=== PATIENT | male | born 1970 | race Caucasian/White ===

== ENCOUNTER 2016-09-16 20:05 | Emergency (ER) | payer MEDICAID ==
[2016-09-16 20:20] VITALS: BP 130/84
--- NOTE | 2016-09-16 21:23 | RAD ---
INDICATION: Left foot injury. TECHNIQUE: 3 views of the left foot were obtained. FINDINGS: The bones are in normal alignment. No fracture is seen. Joint spaces appear maintained. IMPRESSION: NO EVIDENCE FOR FRACTURE.
--- NOTE | 2016-09-16 22:31 | UC ---
Lower Extremity/Ankle HPI - HPI Summary HPI Summary: Patient presents to after "twisting" his foot with pain on the dorsum of the foot and in the lateral side of his ankle this afternoon. He has been ambulating with pain. No swelling noted, but he states the foot became red. Denies warmth or temperature changes. He has not tried anything for relief. Denies diabetes, history of skin infections, CAD or PAD/PVD. Pain is not worse with elevation and not better with dependency. Patient is a heavy smoker and denies close follow up care with PCP. Good pulses +2 bilaterally. No pain on palpation of the foot or lateral ankle. No pain in ankle. Notes to some numbness and tingling in the 4th and 5th toes. - History of Current Complaint Chief Complaint: UCLowerExtremity Stated Complaint: FOOT INJURY Time Seen by Provider: 09/16/16 20:56 Hx Obtained From: Patient Onset/Duration: Sudden Onset Severity Initially: Moderate Severity Currently: Moderate Pain Intensity: 3 Pain Scale Used: 0-10 Numeric Aggravating Factor(s): Standing, Ambulation Alleviating Factor(s): Rest Able to Bear Weight: Yes - Risk Factors Gout Risk Factors: Age Over 40, Male DVT Risk Factors: Negative Septic Arthritis Risk Factor: Negative - Allergies/Home Medications Allergies/Adverse Reactions: Allergies Allergy/AdvReac Type Severity Reaction Status Date / Time Penicillins [PCN] Allergy Severe anaphylaxis Verified 09/16/16 20:19 Aspirin AdvReac Intermediate GI Verified 09/16/16 20:19 upset/vomiting Levetiracetam AdvReac Intermediate See Comment Verified 09/16/16 20:19 Phenytoin [From Dilantin] AdvReac Intermediate Diarrhea Verified 09/16/16 20:19 bees Allergy Severe anaphylaxis Uncoded 01/04/15 12:05 PMH/Surg Hx/FS Hx/Imm Hx Previously Healthy: Yes Cardiovascular History: Other - unknown Other Cardiovascular History: unknown Other History Of: Negative For: Anticoagulant Therapy - Surgical History Surgical History: None - Family History Known Family History: Positive: Diabetes - Social History Occupation: Employed Full-time Lives: With Family Alcohol Use: Rare Substance Use Type: None Smoking Status (MU): Current Every Day Smoker Type: Cigarettes Amount Used/How Often: 1 ppd Length of Time of Smoking/Using Tobacco: 20 years Have You Smoked in the Last Year: Yes - Immunization History Vaccination Up to Date: Yes Review of Systems Constitutional: Negative Skin: Other - erythema over foot Eyes: Eye Redness Respiratory: Negative Cardiovascular: Negative Motor: Decreased ROM - d/t pain Neurovascular: Decreased Sensation - over 4th and 5th toes Musculoskeletal: Arthralgia - ankle Neurological: Negative Psychological: Negative All Other Systems Reviewed And Are Negative: Yes Physical Exam Triage Information Reviewed: Yes Appearance: Well-Appearing, No Pain Distress, Well-Nourished Vital Signs: Initial Vital Signs Temp 98.8 F 09/16/16 20:18 Pulse 92 09/16/16 20:18 Resp 16 09/16/16 20:18 BP 130/84 09/16/16 20:18 Pulse Ox 99 09/16/16 20:18 Vital Signs Reviewed: Yes Eye Exam: Normal Eyes: Positive: Conjunctiva Clear Neck exam: Normal Neck: Positive: Supple, Nontender, No Lymphadenopathy Respiratory Exam: Normal Respiratory: Positive: Chest non-tender, Lungs clear Cardiovascular Exam: Normal Cardiovascular: Positive: RRR Musculoskeletal Exam: Normal Musculoskeletal: Positive: Strength Intact Neurological Exam: Normal Neurological: Positive: Alert Psychological: Positive: Normal Response To Family Skin: Positive: Other - rubor below the left ankle and diffusely across foot Lower Extremity Course/Dx - Course Course Of Treatment: Patient presents after twisting his ankle this afternoon with moderate pain on ambulation and rubor below the left ankle and diffusely across foot. Denies PAD/PVD, gout or diabetes. Pulses +2 bilaterally. No pain on palpation over dorsum of foot or over the ATFL. Patient is able to flex and extend, but with moderate amount of pain. He is a smoker. Encouraged cessation of smoking and educated patient on decreased vascularity d/t smoking. Encouraged to follow up with Dr. Saeed and return to if redness, numbness or other worsening symptoms develop. Anton wrapped for comfort. Patient denies wanting crutches as he is able to ambulate. Ibuprofen for discomfort. - Differential Dx/Diagnosis Differential Diagnosis/HQI/PQRI: Contusion, Sprain, Strain, Tendonitis Provider Diagnoses: Foot Sprain Discharge - Discharge Plan Condition: Stable Disposition: HOME Patient Education Materials: Foot Sprain (ED) Referrals: Mauricio Saeed MD [Medical Doctor] - David Dumont MD [Primary Care Provider] - Additional Instructions: Rest. Ice. For at least the first 24 to 72 hours or until the swelling goes down, apply an ice pack for 10 to 20 minutes every hour or two during the day. Always keep a thin cloth between the ice and your skin, and press the ice pack firmly against all the curves of the affected area. Compression. An elastic compression wrap, such as an ANTON bandage, will help reduce swelling. You wear it for the first 24 to 36 hours. Compression wraps do not offer protection. So you also need a brace to protect your ankle if you try to put weight on it. Elevation. Raise your ankle above the level of your heart for 2 to 3 hours a day if possible. This helps to reduce swelling and bruising. Ibuprofen 600mg three times daily for at least 5 days Continue with anton wrap x 2-3 days
== END 2016-09-16 21:47 | disposition home or self-care (01) ==
LOC: UCEAST 20:05
DX: S93.602A Unspecified sprain of left foot, initial encounter (principal); X50.1XXA Overexertion from prolonged static or awkward postures, initial encounter; Y93.9 Activity, unspecified; Y92.9 Unspecified place or not applicable; Y99.9 Unspecified external cause status; Z72.0 Tobacco use
CPT/HCPCS: 99211; G0463

== ENCOUNTER 2017-01-10 23:13 | Emergency (ER) | payer MEDICAID ==
[2017-01-10] MEDS ORDERED: NS 0.9% 1000 ML* 1,000 ML IV ONE (23:23)
[2017-01-10 23:28] VITALS: BP 128/88
[2017-01-10 23:44] LABS: Hematocrit 46 % (42-52); Hemoglobin 16.2 g/dl (14.0-18.0); Mean Corpuscular HGB Conc 35 g/dl (31-36); Mean Corpuscular Hemoglobin 32 pg (27-31); Mean Corpuscular Volume 90 fL (80-94); Mean Platelet Volume 8 um3 (7.4-10.4); Red Blood Count 5.09 10^6/ul (4.0-5.4); Red Cell Distribution Width 14 % (10.5-15); White Blood Count 10.6 10^3/ul (3.5-10.8)
[2017-01-10 23:55] LABS: Urine Bacteria Absent (Absent); Urine Bilirubin Negative (Negative); Urine Glucose Negative (Negative); Urine Nitrite Negative (Negative)
[2017-01-11 00:03] LABS: ALT 21 U/L (7-52); Alkaline Phosphatase 75 U/L (34-104); BUN/Creatinine Ratio 16.8 (8-20); Blood Urea Nitrogen 18 mg/dL (6-24); CO2 Carbon Dioxide 22 mmol/L (22-32); Calcium 9.3 mg/dL (8.6-10.3); Chloride 103 mmol/L (101-111); Creatine Kinase 99 U/L (10-223); EGFR African American 96.6 (>60); EGFR Non-African American 75.1 (>60); Globulin 2.9 g/dL (2-4); Glucose 138 mg/dL (70-100); Lipase 30 U/L (11.0-82.0); Sodium 136 mmol/L (133-145); Total Protein 6.9 g/dL (6.4-8.9)
[2017-01-11 00:06] LABS: Benzodiazepine Urine Screen None Detected (None Detect)
[2017-01-11 00:08] LABS: Acetaminophen < 15 mcg/mL; Alcohol < 10 mg/dL (<10); Valproic Acid < 13.0 mcg/mL (50-100)
[2017-01-11 00:20] LABS: Anion Gap 11 mmol/L (2-11)
[2017-01-11 00:32] LABS: TSH (Thyroid Stimulating Horm) 4.99 mcIU/mL (0.34-5.60)
== END 2017-01-11 00:40 | disposition home or self-care (01) ==
LOC: ED 23:13
DX: R56.9 Unspecified convulsions (principal); Z53.21 Procedure and treatment not carried out due to patient leaving prior to being seen by health care provider
CPT/HCPCS: 36415; 80053; 80164; 80307; 80320; 80329; 81003; 81015; 82550; 82553; 83605; 83690; 83735; 84443; 85025; 85610; 85730; 86140; G0480

== ENCOUNTER 2017-01-12 15:51 | Emergency (ER) | payer MEDICAID ==
[2017-01-12 17:25] LABS: Hematocrit 46 % (42-52); Hemoglobin 15.5 g/dl (14.0-18.0); Mean Corpuscular HGB Conc 34 g/dl (31-36); Mean Corpuscular Hemoglobin 31 pg (27-31); Mean Corpuscular Volume 90 fL (80-94); Mean Platelet Volume 8 um3 (7.4-10.4); Red Blood Count 5.07 10^6/ul (4.0-5.4); Red Cell Distribution Width 14 % (10.5-15); White Blood Count 13.5 10^3/ul (3.5-10.8)
[2017-01-12 17:41] LABS: ALT 22 U/L (7-52); Albumin 4.2 g/dL (3.2-5.2); Alkaline Phosphatase 61 U/L (34-104); BUN/Creatinine Ratio 14.3 (8-20); Blood Urea Nitrogen 14 mg/dL (6-24); CO2 Carbon Dioxide 27 mmol/L (22-32); Calcium 9.3 mg/dL (8.6-10.3); Chloride 105 mmol/L (101-111); EGFR African American 106.9 (>60); EGFR Non-African American 83.1 (>60); Glucose 94 mg/dL (70-100); Sodium 137 mmol/L (133-145); Total Protein 7.2 g/dL (6.4-8.9)
[2017-01-12 17:52] LABS: Alcohol < 10 mg/dL (<10)
[2017-01-12 17:55] LABS: Anion Gap 5 mmol/L (2-11)
[2017-01-12] MEDS ORDERED: Acetaminophen TAB* 325 MG PO ONE (17:56)
[2017-01-12] MEDS ORDERED: Ibuprofen TAB* 400 MG PO ONE (17:56)
[2017-01-12 18:01] LABS: Urine Bilirubin Negative (Negative); Urine Glucose Negative (Negative); Urine Nitrite Negative (Negative)
--- NOTE | 2017-01-12 19:04 | ED ---
Michael Biswas SooYoung, scribed for Luis Carlos Kunz MD on 01/12/17 at 1653 . Neurological HPI - HPI Summary HPI Summary: A 46 y/o M presents to ED s/p sz onset [employer] lasting approx 5 minutes. Associated sx: fever, MOORE, sinus congestion, sore throat, tongue bite. Denies: urinary incontinence. He states he also had a sz two nights ago. Prior to that, it had "been a long time." Medication non-compliant with sz meds. - History of Current Complaint Chief Complaint: EDSeizure Stated Complaint: SEIZURES Hx Obtained From: Patient Onset/Duration: Sudden Onset, Resolved Timing: Intermittent Episodes Lasting: - approx 5 mins Seizure Severity: Moderate Number of Seizures: 1 Pain Intensity: 7 Pain Scale Used: 0-10 Numeric Associated Signs and Symptoms: Positive: Headache, Seizure, Sinus Pressure - sinus congestion, Fever - Allergy/Home Medications Allergies/Adverse Reactions: Allergies Allergy/AdvReac Type Severity Reaction Status Date / Time Penicillins [PCN] Allergy Severe anaphylaxis Verified 09/16/16 20:19 Aspirin AdvReac Intermediate GI Verified 09/16/16 20:19 upset/vomiting Levetiracetam AdvReac Intermediate See Comment Verified 09/16/16 20:19 Phenytoin [From Dilantin] AdvReac Intermediate Diarrhea Verified 09/16/16 20:19 bees Allergy Severe anaphylaxis Uncoded 01/04/15 12:05 PMH/Surg Hx/FS Hx/Imm Hx Previously Healthy: No Endocrine/Hematology History: Denies: Hx Anticoagulant Therapy, Hx Diabetes, Hx Thyroid Disease, Other Endocrine/Hematological Disorders Cardiovascular History: Denies: Hx Hypertension, Other Cardiovascular Problems/Disorders Respiratory History: Denies: Hx Asthma, Hx Chronic Obstructive Pulmonary Disease (COPD), Other Respiratory Problems/Disorders GI History: Denies: Hx Ulcer, Other GI Disorders History: Denies: Other Problems/Disorders Musculoskeletal History: Denies: Hx Rheumatoid Arthritis, Hx Osteoporosis, Other Musculoskeletal History Sensory History: Denies: Other Sensory Impairments Opthamlomology History: Denies: Other Sensory Impairments Neurological History: Reports: Hx Headaches, Hx Migraine, Hx Seizures - chronic ; 15 years, stable now; intermittent and rare Denies: Other Neuro Impairments/Disorders Psychiatric History: Denies: Other Psychiatric Issues/Disorders Infectious Disease History: No Infectious Disease History: Denies: Hx Clostridium Difficile, Hx Hepatitis, Hx Human Immunodeficiency Virus (HIV), Hx of Known/Suspected MRSA, Hx Shingles, Hx Tuberculosis, Hx Known/ Suspected VRE, Hx Known/Suspected VRSA, History Other Infectious Disease, Traveled Outside the [place] in Last 30 Days - Family History Known Family History: Positive: Diabetes - Social History Occupation: Unemployed Lives: With Family Alcohol Use: Rare Substance Use Type: Reports: None Smoking Status (MU): Light Every Day Tobacco Smoker Type: Cigarettes Amount Used/How Often: 1 ppd Length of Time of Smoking/Using Tobacco: 20 years Have You Smoked in the Last Year: Yes Review of Systems Positive: Fever Positive: Sore Throat, Other - pos: tongue bite, sinus congestion Negative: incontinence Neurological: Other - pos: sz Positive: Headache All Other Systems Reviewed And Are Negative: Yes Physical Exam Triage Information Reviewed: Yes Vital Signs On Initial Exam: Initial Vitals Temp Pulse Resp BP Pulse Ox 98.9 F 109 14 119/76 94 01/12/17 16:01 01/12/17 16:01 01/12/17 16:01 01/12/17 16:01 01/12/17 16:01 Vital Signs Reviewed: Yes Appearance: Positive: Well-Appearing, No Pain Distress Skin: Positive: Warm, Skin Color Reflects Adequate Perfusion, Dry Head/Face: Positive: Normal Head/Face Inspection Eyes: Positive: Normal ENT: Positive: Normal ENT inspection, Nasal congestion Dental: Positive: Other - poor dentition; tongue has mild edema and two puncture wounds Neck: Positive: Supple, Nontender Respiratory/Lung Sounds: Positive: Clear to Auscultation, Breath Sounds Present Cardiovascular: Positive: RRR Abdomen Description: Positive: Nontender, Soft Bowel Sounds: Positive: Present Musculoskeletal: Positive: Normal Neurological: Positive: Normal Psychiatric: Positive: Normal, Affect/Mood Appropriate - [place] Coma Scale Coma Scale Total: 13 Diagnostics - Vital Signs Vital Signs Temp Pulse Resp BP Pulse Ox 01/12/17 16:30 93 114/64 92 01/12/17 16:03 101 92 01/12/17 16:01 98.9 F 109 14 119/76 94 - Laboratory Lab Results: Lab Results 01/12/17 01/12/17 01/12/17 Range/Units 17:10 17:10 17:10 WBC 13.5 H (3.5-10.8) 10^3/ul RBC 5.07 (4.0-5.4) 10^6/ul Hgb 15.5 (14.0-18.0) g/dl Hct 46 (42-52) % MCV 90 (80-94) fL MCH 31 (27-31) pg MCHC 34 (31-36) g/dl RDW 14 (10.5-15) % Plt Count 249 (150-450) 10^3/ul MPV 8 (7.4-10.4) um3 Neut % (Auto) 82.6 (38-83) % Lymph % (Auto) 9.4 L (25-47) % [place] % (Auto) 6.5 (1-9) % Eos % (Auto) 0.7 (0-6) % Baso % (Auto) 0.8 (0-2) % Absolute Neuts (auto) 11.1 H (1.5-7.7) 10^3/ul Absolute Lymphs (auto) 1.3 (1.0-4.8) 10^3/ul Absolute Monos (auto) 0.9 H (0-0.8) 10^3/ul Absolute Eos (auto) 0.1 (0-0.6) 10^3/ul Absolute Basos (auto) 0.1 (0-0.2) 10^3/ul Absolute Nucleated RBC 0 10^3/ul Nucleated RBC % 0 INR (Anticoag Therapy) 0.87 L (0.89-1.11) Sodium 137 (133-145) mmol/L Potassium TNP Chloride 105 (101-111) mmol/L Carbon Dioxide 27 (22-32) mmol/L Anion Gap 5 (2-11) mmol/L BUN 14 (6-24) mg/dL Creatinine 0.98 (0.67-1.17) mg/dL Est GFR ( Amer) 106.9 (>60) Est GFR (Non-Af Amer) 83.1 (>60) BUN/Creatinine Ratio 14.3 (8-20) Glucose 94 (70-100) mg/dL Lactic Acid (0.5-2.0) mmol/L Calcium 9.3 (8.6-10.3) mg/dL Magnesium TNP Total Bilirubin 0.30 (0.2-1.0) mg/dL AST TNP ALT 22 (7-52) U/L Alkaline Phosphatase 61 (34-104) U/L Total Protein 7.2 (6.4-8.9) g/dL Albumin 4.2 (3.2-5.2) g/dL Globulin 3.0 (2-4) g/dL Albumin/Globulin Ratio 1.4 (1-3) Urine Color Urine Appearance Urine pH (5-9) Ur Specific [place] (1.010-1.030) Urine Protein (Negative) Urine Ketones (Negative) Urine Blood (Negative) Urine Nitrate (Negative) Urine Bilirubin (Negative) Urine Urobilinogen (Negative) Ur Leukocyte Esterase (Negative) Urine Glucose (Negative) Serum Alcohol < 10 (<10) mg/dL 01/12/17 01/12/17 Range/Units 17:10 17:10 WBC (3.5-10.8) 10^3/ul RBC (4.0-5.4) 10^6/ul Hgb (14.0-18.0) g/dl Hct (42-52) % MCV (80-94) fL MCH (27-31) pg MCHC (31-36) g/dl RDW (10.5-15) % Plt Count (150-450) 10^3/ul MPV (7.4-10.4) um3 Neut % (Auto) (38-83) % Lymph % (Auto) (25-47) % [place] % (Auto) (1-9) % Eos % (Auto) (0-6) % Baso % (Auto) (0-2) % Absolute Neuts (auto) (1.5-7.7) 10^3/ul Absolute Lymphs (auto) (1.0-4.8) 10^3/ul Absolute Monos (auto) (0-0.8) 10^3/ul Absolute Eos (auto) (0-0.6) 10^3/ul Absolute Basos (auto) (0-0.2) 10^3/ul Absolute Nucleated RBC 10^3/ul Nucleated RBC % INR (Anticoag Therapy) (0.89-1.11) Sodium (133-145) mmol/L Potassium Chloride (101-111) mmol/L Carbon Dioxide (22-32) mmol/L Anion Gap (2-11) mmol/L BUN (6-24) mg/dL Creatinine (0.67-1.17) mg/dL Est GFR ( Amer) (>60) Est GFR (Non-Af Amer) (>60) BUN/Creatinine Ratio (8-20) Glucose (70-100) mg/dL Lactic Acid 1.7 (0.5-2.0) mmol/L Calcium (8.6-10.3) mg/dL Magnesium Total Bilirubin (0.2-1.0) mg/dL AST ALT (7-52) U/L Alkaline Phosphatase (34-104) U/L Total Protein (6.4-8.9) g/dL Albumin (3.2-5.2) g/dL Globulin (2-4) g/dL Albumin/Globulin Ratio (1-3) Urine Color Yellow Urine Appearance Clear Urine pH 5.0 (5-9) Ur Specific [place] 1.015 (1.010-1.030) Urine Protein Negative (Negative) Urine Ketones Negative (Negative) Urine Blood Negative (Negative) Urine Nitrate Negative (Negative) Urine Bilirubin Negative (Negative) Urine Urobilinogen Negative (Negative) Ur Leukocyte Esterase Negative (Negative) Urine Glucose Negative (Negative) Serum Alcohol (<10) mg/dL Result Diagrams: 01/12/17 17:10 01/12/17 17:10 Lab Statement: Any lab studies that have been ordered have been reviewed, and results considered in the medical decision making process. Course/Dx - Course Course Of Treatment: Mr. Price has a known seizure disorder and has not been taking his valproic acid as he does not like the way it feels. He has had viral symptoms of cough and congestion and sore throat for a few days and has had two seizures in the last 3 days. His W/U is negative and his threshold is likely lower due to being ill. I encouraged him to take his Depakote at least for the time being. He is not allowed to drive! - Diagnoses Provider Diagnoses: Seizure disorder Discharge - Discharge Plan Condition: Stable Disposition: HOME Patient Education Materials: Recurrent Seizures in Adults (ED) Referrals: David Dumont MD [Primary Care Provider] - 3 Days Additional Instructions: Take your seizure medication as prescribed. Follow up with your primary care provider in 3 days. Please return to the ED if you experience new or worsening symptoms. The documentation as recorded by the Michael taylor,[email or web address] accurately reflects the service I personally performed and the decisions made by me, Luis Carlos Kunz MD.
[2017-01-12 19:07] LABS: Magnesium 2.3 mg/dL (1.9-2.7)
[2017-01-12 19:10] VITALS: BP 132/91
== END 2017-01-12 19:19 | disposition home or self-care (01) ==
LOC: ED 15:51
DX: G40.909 Epilepsy, unspecified, not intractable, without status epilepticus (principal); Z88.0 Allergy status to penicillin; Z91.19 Patient's noncompliance with other medical treatment and regimen
CPT/HCPCS: 36415; 80053; 80320; 81003; 83605; 83735; 85025; 85610; 99283; A9270-GY; G0480

== ENCOUNTER 2017-05-22 15:13 | Emergency (ER) | payer MEDICAID | END 2017-05-22 16:30 | disposition left against medical advice (07) | LOC: UCEAST 15:13 | DX: H57.8 Other specified disorders of eye and adnexa (principal); Z53.21 Procedure and treatment not carried out due to patient leaving prior to being seen by health care provider ==